=== PATIENT | male | born 1960 | race African-American/Black ===

== ENCOUNTER → 2017-02-21 | Outpatient (CLI) | payer MEDICARE ==
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
== END | disposition home or self-care (01) ==
LOC: CRAD 20:00
DX: M25.562 Pain in left knee (principal)
CPT/HCPCS: 73560